=== PATIENT | male | born 1985 | race Caucasian/White ===

== ENCOUNTER → 2017-11-06 | Outpatient (REF) | payer BC | LOC: M LAB REF 18:46 | DX: D22.71 Melanocytic nevi of right lower limb, including hip (principal); C44.301 Unspecified malignant neoplasm of skin of nose | CPT/HCPCS: 88305 ==

== ENCOUNTER → 2018-09-09 | Outpatient (REF) | payer BC | LOC: M SFHCPLAZ 17:02 | PROVIDERS: ATTEND Dermatology | DX: D22.61 Melanocytic nevi of right upper limb, including shoulder (principal) ==

== ENCOUNTER 2019-12-23 16:55 | Emergency (ER) | payer BC ==
[~2019-12-23] VITALS: Ht 177.8 cm; Wt 99.0 kg
[2019-12-23] MEDS ORDERED: NEXI20CA33 PO (17:02)
[2019-12-23] MEDS ORDERED: CLAR1TAB13 PO (17:02)
[2019-12-23] MEDS ORDERED: ONDANSETRON 4MG/2ML VIAL IV ONE (17:45)
[2019-12-23] MEDS ORDERED: NS 1,000 ML IV SCH (17:45)
[2019-12-23 18:10] LABS: BASO # 0.1 10^3/uL (0.0-0.2); BASO % 0.9 % (0.0-1.0); EOS # 0.1 10^3/uL (0.0-0.5); EOS % 1.6 % (0.0-3.0); HEMATOCRIT 46.1 % (42.0-52.0); LYMPH # 1.6 10^3/uL (1.5-5.0); LYMPH % 22.8 % (24.0-44.0); MEAN CORPUSCULAR HEMOGLOBIN 28.1 pg (27.0-33.0); MEAN CORPUSCULAR HGB CONC 32.5 g/dl (32.0-36.5); MEAN CORPUSCULAR VOLUME 86.5 fl (80.0-96.0); MONO # 0.7 10^3/uL (0.0-0.8); MONO % 10.3 % (0.0-5.0); NEUTROPHILS # 4.5 10^3/uL (1.5-8.5); NEUTROPHILS % 63.8 % (36.0-66.0); PLATELET COUNT, AUTOMATED 284 10^3/uL (150-450); RED BLOOD COUNT 5.33 10^6/uL (4.30-6.10)
[2019-12-23] MEDS: MORPHINE 4 MG/ML 1ML VIAL/SYRINGE (J2270) IV PRN ×2 (18:20→18:56)
[2019-12-23 18:29] LABS: ERYTHROCYTE SEDIMENTATION RATE 6 mm/hr (0-15)
[2019-12-23 18:43] LABS: ALBUMIN 4.6 GM/DL (3.2-5.2); ALT/SGPT 52 U/L (12-78); BILIRUBIN,DIRECT 0.1 MG/DL (0.0-0.2); BILIRUBIN,TOTAL 0.5 MG/DL (0.2-1.0); BLOOD UREA NITROGEN 9 MG/DL (7-18); C REACTIVE PROTEIN QUANTITATIV 0.58 MG/DL (0.00-0.30); CALCIUM LEVEL 9.7 MG/DL (8.5-10.1); CARBON DIOXIDE LEVEL 24 MEQ/L (21-32); CHLORIDE LEVEL 109 MEQ/L (98-107); CREATININE FOR GFR 1.27 MG/DL (0.70-1.30); GLOMERULAR FILTRATION RATE > 60.0 (>60); GLUCOSE, FASTING 92 MG/DL (70-100); LIPASE 79 U/L (73-393); POTASSIUM SERUM 4.4 MEQ/L (3.5-5.1); SODIUM LEVEL 139 MEQ/L (136-145); TOTAL PROTEIN 8.2 GM/DL (6.4-8.2)
[2019-12-23] MEDS: GASTROGRAFIN SOLUTION 30ML PO SCH ×2 (18:58→19:35)
[2019-12-23] MEDS ORDERED: ISOVUE-370 76% 100ML VIAL As Ordered ONE (20:28)
--- NOTE | 2019-12-23 21:26 | REPVR ---
PROCEDURE INFORMATION: Exam: CT Abdomen and Pelvis with Contrast Exam date and time: 12/23/19 (8:32pm) Age: 34 years old Clinical indication: Lower abdominal / rectal pain, swelling. Possible inflammatory disease. TECHNIQUE: Imaging protocol: Computed tomography of the abdomen and pelvis with intravenous contrast. Radiation optimization: All CT scans at this facility use at least one of these dose optimization techniques: automated exposure control; mA and/or kV adjustment per patient size (includes targeted exams where dose is matched to clinical indication); or iterative reconstruction. Contrast material: Isovue 370 Contrast volume: 100 ml Contrast route: IV COMPARISON: No relevant prior studies available FINDINGS: Liver: No solid mass. Diffuse fatty infiltration. Gallbladder and bile ducts: Normal. No calcified stones. No ductal dilatation. Pancreas: Normal. No ductal dilatation. Spleen: Mild splenomegaly. . Adrenal glands: Normal. No mass. Kidneys and ureters: No hydronephrosis. Small calcification (3 mm size) at or close to the right UV junction. Not certain if this stone is in the distal right ureter, or closely adjacent. No hydronephrosis. Punctate non-obstructing left intrarenal stone, below the left renal hilum. Stomach and bowel: Unremarkable. No bowel obstruction. No mucosal thickening. Appendix: No evidence of appendicitis. Intraperitoneal space: Unremarkable. No free air. No significant fluid collection. Vasculature: Unremarkable. No abdominal aortic aneurysm. Lymph nodes: Unremarkable. No enlarged lymph nodes. Urinary bladder: Unremarkable as visualized. Reproductive: Unremarkable as visualized. Bones/joints: Unremarkable. No acute fracture. Soft tissues: Unremarkable. IMPRESSION: No acute bowel pathology. No hydronephrosis. Possible small non-obstructing stone (3 mm size) at the right UV junction. This small calcification may be at the right UV junction, or closely adjacent. R at home Clinical correlation is needed. Comparison with a prior CT scan would be helpful, if available. Mild splenomegaly. Electronically signed by: Jade Ga On 12/23/2019 21:25:44 PM
[2019-12-23] MEDS ORDERED: PERCOCET 5MG/325MG TAB PO ONE (21:30)
[2019-12-23 21:44] VITALS: BP 141/85
[2019-12-23] MEDS ORDERED: KETOROLAC 30 MG/ML 1ML VIAL IV ONE (21:45)
[2019-12-23] MEDS ORDERED: LIDOCAINE 4% CREAM 5GM (LMX4) TOP ONE (22:00)
[2019-12-23] MEDS ORDERED: OXYCODONE/APAP 5MG/325MG(BULK FOR ED) 1 TABLET PO ONE (22:00)
== END 2019-12-23 22:20 | disposition home or self-care (01) ==
LOC: M ED 16:55
DX: N20.1 Calculus of ureter (principal); K62.89 Other specified diseases of anus and rectum; K21.9 Gastro-esophageal reflux disease without esophagitis; Z79.899 Other long term (current) drug therapy
CPT/HCPCS: 74177; 80048; 80076; 81001; 83605; 83690; 85025; 85652; 86140; 96374; 96375; 96376; 99284; J1885; J2270; J2405; Q9963; Q9967

== ENCOUNTER → 2020-11-17 | Outpatient (REF) | payer BC ==
[~2020-11-17] MED LIST: CLAR1TAB13 PO; NEXI20CA33 PO
== END ==
LOC: M LAB REF 14:44
PROVIDERS: ATTEND Physician Assistant
DX: L91.8 Other hypertrophic disorders of the skin (principal); D49.2 Neoplasm of unspecified behavior of bone, soft tissue, and skin